=== PATIENT | female | born 1935 | race Caucasian/White ===

== ENCOUNTER 2017-07-12 10:12 | Emergency (ER) | payer MEDICARE, OTHER ==
[2017-07-12] MEDS ORDERED: Valium 5 MG PO ONE (10:53)
[2017-07-12 10:54] LABS: BASOPHIL % 0.6 % (0.0-0.4); Basophil (Absolute #) 0.04 (0-0.4); Eosinophil % 1.6 % (0.00-5.0); Eosinophil (Absolute #) 0.11 (0-0.5); Granulocyte Absolute (ANC) 4.57 (1.4-6.9); Granulocytes % 65.9 % (36.0-66.0); Hematocrit 44.5 % (35-47); Hemoglobin 14.8 gm/dl (12.0-16.0); Lymphocyte (Absolute #) 1.61 (1.0-4.6); Lymphocytes % 23.2 % (24.0-44.0); Mean Cell Volume 88.3 fl (78-100); Mean Corpuscular Hemoglobin 29.4 pg (26-32); Mean Corpuscular Hgb Concent. 33.3 g/dl (32-36); Mean Platelet Volume 10.7 fl (6-9.5); Monocytes % 8.7 % (0.0-12.0); Platelet Count 184 K/mm3 (150-450); Red Blood Count 5.04 M/mm3 (4.1-5.4); Red Cell Distribution Width 14.3 % (11.5-14.0); White Blood Count 6.9 K/mm3 (4.0-10.5)
--- NOTE | 2017-07-12 11:04 | ERPHSYRPT ---
- History of Present Illness Time Seen by Provider: 07/12/17 10:21 Source: patient, family Patient Subjective Stated Complaint: pt here for dizzness worse when moves, has been for 4 days now. pt denies any headache, n/v. daughter thinks she is more forgetfull lately but her cousin who is here does not think so Triage Nursing Assessment: pt alert, oreinted x3, resp easy, skin w/d/p. moves all ext well, no edema noted Physician History: CC: dizziness Hx: [address] James. She has intermittent feeling of dizziness for the past three days. She has felt the room spin but not now. When she looks at the clock it looks like it is moving. When she looks at a car on the shelf it looks like it is moving. No fall or injury. She takes coumadin. No headache, chest pain, abd pain. No N/V/D. No ear ache. No prior hx of this in the past. No tinnitus. No new hearing loss. Was worse 2 days ago when she laid back in the hair chair. Severity: moderate Allergies/Adverse Reactions: Sulfa (Sulfonamide Antibiotics) [Sulfa(Sulfonamide Antibiotics)] Allergy ( Intermediate, Verified 07/12/17 10:41) Fainting Home Medications: Potassium Chloride 20 Meq [Klor-Con 20 MEQ] 20 meq PO BID 03/05/12 [History] Carvedilol 3.125 mg [Coreg 3.125 MG] 6.25 mg PO BID 06/17/12 [History] Levothyroxine Sodium 150 Mcg [Synthroid 150 Mcg] 150 mcg PO DAILY 06/17/12 [ History] Warfarin Sodium 5 mg [Coumadin 5 MG] 3 mg PO DAILY 12/07/12 [History] Lisinopril 10 mg [Zestril 10 MG] 10 mg PO DAILY 11/19/14 [History] Pyridoxine HCl (Vitamin B6) [Vitamin B-6] 2 tab PO DAILY 11/19/14 [History] Hx Tetanus, Diphtheria Vaccination/Date Given: Yes (> 10 years) Hx Influenza Vaccination/Date Given: Yes Hx Pneumococcal Vaccination/Date Given: Yes - Review of Systems Constitutional: No Fever, No Chills Eyes: No Vision Changes Ears, Nose, & Throat: No Ear Pain, No Ear Discharge, No Hearing Changes, No Tinnitus, No Nose Congestion Respiratory: No Cough, No Dyspnea Cardiac: No Chest Pain, No Palpitations, No Syncope Abdominal/Gastrointestinal: No Abdominal Pain, No Nausea, No Vomiting, No Diarrhea Genitourinary Symptoms: No Dysuria Skin: No Rash Neurological: Dizziness, No Focal Weakness, No Headache, No Parasthesia All Other Systems: Reviewed and Negative - Past Medical History Pertinent Past Medical History: Yes Neurological History: No Pertinent History, TIA ENT History: Cataracts Cardiac History: Arrhythmia, Hypertension Respiratory History: No Pertinent History, Pneumonia Endocrine Medical History: Hypothyroidism Musculoskeletal History: No Pertinent History GI Medical History: Diverticulitis, Hernia History: No Pertinent History Psycho-Social History: No Pertinent History Female Reproductive Disorders: No Pertinent History Other Medical History: a-fib, non hodgkins lymphoma-Feb 2012 - Past Surgical History Past Surgical History: Yes Neuro Surgical History: No Pertinent History Cardiac: No Pertinent History Respiratory: No Pertinent History Gastrointestinal: No Pertinent History Genitourinary: No Pertinent History Musculoskeletal: No Pertinent History Female Surgical History: Hysterectomy Other Surgical History: cvl port placed and removed, excision lymph node in groin, R shoulder mass removed-benign, 2009 small mole removed from back of neck +carcinoma, cataract surgery - Social History Smoking Status: Never smoker Exposure to second hand smoke: Yes Drug Use: none Patient Lives Alone: No - Female History Hx Last Menstrual Period: post Hx Now: No - Nursing Vital Signs Nursing Vital Signs: Initial Vital Signs Temperature 97.2 F 07/12/17 10:31 Pulse Rate 57 L 07/12/17 10:31 Respiratory Rate 18 07/12/17 10:31 Blood Pressure 177/96 07/12/17 10:31 O2 Sat by Pulse Oximetry 97 07/12/17 10:31 Pain Scale Pain Intensity 0 - Physical Exam General Appearance: alert Eye Exam: PERRL/EOMI, other (horizontal nystagmus) Ears, Nose, Throat Exam: normal ENT inspection, moist mucous membranes Neck Exam: normal inspection, non-tender, supple Respiratory Exam: normal breath sounds, lungs clear Cardiovascular Exam: regular rate/rhythm Gastrointestinal/Abdomen Exam: soft, No tenderness, No distention, No guarding Extremity Exam: normal inspection, normal range of motion, No calf tenderness Neurologic Exam: alert, oriented x 3, cooperative, 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 No) Ordered Tests: Active Orders 24 hr Category Date Time Status EKG-ER Only STAT Care 07/12/17 10:53 Active IV Insertion STAT Care 07/12/17 10:53 Active CHEST 2 VIEWS (PA AND LAT) Stat Exams 07/12/17 11:05 Completed HEAD WITHOUT CONTRAST [CT] Stat Exams 07/12/17 10:53 Completed CBC W DIFF Stat Lab 07/12/17 10:40 Completed CMP Stat Lab 07/12/17 10:40 Completed CULTURE,URINE Stat Lab 07/12/17 12:16 Ordered PROTIME WITH INR Stat Lab 07/12/17 10:53 Completed UA W/ MICROSCOPIC Stat Lab 07/12/17 10:40 Completed Medication Summary Discontinued Medications Generic Name Dose Route Start Last Admin Trade Name Nick PRN Reason Stop Dose Admin Diazepam 2.5 mg 07/12/17 10:53 07/12/17 11:18 Valium 5 Mg PO 07/12/17 10:54 2.5 mg STAT ONE Administration Diazepam Confirm 07/12/17 11:16 Valium 5 Mg Administered 07/12/17 11:17 Dose 5 mg .ROUTE .Zipdial-MED ONE Lab/Rad Data: Laboratory Result Diagrams 07/12/17 10:40 07/12/17 10:40 Laboratory Results 07/12/17 07/12/17 07/12/17 Range/Units 10:53 10:40 10:40 WBC 6.9 (4.0-10.5) K/mm3 RBC 5.04 (4.1-5.4) M/mm3 Hgb 14.8 (12.0-16.0) gm/dl Hct 44.5 (35-47) % MCV 88.3 (78-100) fl MCH 29.4 (26-32) pg MCHC 33.3 (32-36) g/dl RDW 14.3 H (11.5-14.0) % Plt Count 184 (150-450) K/mm3 MPV 10.7 H (6-9.5) fl Gran % 65.9 (36.0-66.0) % Lymphocytes % 23.2 L (24.0-44.0) % Monocytes % 8.7 (0.0-12.0) % Eosinophils % 1.6 (0.00-5.0) % Basophils % 0.6 (0.0-0.4) % Basophils # 0.04 (0-0.4) INR 2.29 (0.8-3.0) Sodium 138 (137-145) mmol/L Potassium 4.6 (3.5-5.1) mmol/L Chloride 102 (98-107) mEq/L Carbon Dioxide 28 (22-30) mmol/L Anion Gap 13.1 (5-15) MEQ/L BUN 16 (7-17) mg/dl Creatinine 0.61 (0.52-1.04) mg/dl Estimated GFR > 60 ML/MIN Glucose 95 (74-106) mg/dL Calcium 9.8 (8.4-10.2) mg/dL Total Bilirubin 1.40 H (0.2-1.3) mg/d? AST 38 H (14-36) U/L ALT 17 (0-35) U/L Alkaline Phosphatase 86 (38-126) U/L Serum Total Protein 6.9 (6.3-8.2) mg/dl Albumin 4.0 (3.5-5.0) g/dl Ur Collection Type Urine Color (YELLOW) Urine Appearance (CLEAR) Urine pH (5-6) Ur Specific [place] (1.005-1.025) Urine Protein (Negative) Urine Ketones (NEGATIVE) Urine Blood (0-5) Saurabh/ul Urine Nitrite (NEGATIVE) Urine Bilirubin (NEGATIVE) Urine Urobilinogen (0-1) mg/dL Ur Leukocyte Esterase (NEGATIVE) Urine Microscopic RBC (0-2) /HPF Urine Microscopic WBC (0-5) /HPF Ur Epithelial Cells (FEW) /HPF Urine Bacteria (NEGATIVE) /HPF Urine Culture Reflexed (NO) Urine Glucose (NEGATIVE) mg/dL Specimen Received 07/12/17 Range/Units 10:40 WBC (4.0-10.5) K/mm3 RBC (4.1-5.4) M/mm3 Hgb (12.0-16.0) gm/dl Hct (35-47) % MCV (78-100) fl MCH (26-32) pg MCHC (32-36) g/dl RDW (11.5-14.0) % Plt Count (150-450) K/mm3 MPV (6-9.5) fl Gran % (36.0-66.0) % Lymphocytes % (24.0-44.0) % Monocytes % (0.0-12.0) % Eosinophils % (0.00-5.0) % Basophils % (0.0-0.4) % Basophils # (0-0.4) INR (0.8-3.0) Sodium (137-145) mmol/L Potassium (3.5-5.1) mmol/L Chloride (98-107) mEq/L Carbon Dioxide (22-30) mmol/L Anion Gap (5-15) MEQ/L BUN (7-17) mg/dl Creatinine (0.52-1.04) mg/dl Estimated GFR ML/MIN Glucose (74-106) mg/dL Calcium (8.4-10.2) mg/dL Total Bilirubin (0.2-1.3) mg/d? AST (14-36) U/L ALT (0-35) U/L Alkaline Phosphatase (38-126) U/L Serum Total Protein (6.3-8.2) mg/dl Albumin (3.5-5.0) g/dl Ur Collection Type CCMS Urine Color YELLOW (YELLOW) Urine Appearance CLEAR (CLEAR) Urine pH 5.0 (5-6) Ur Specific [place] 1.020 (1.005-1.025) Urine Protein NEGATIVE (Negative) Urine Ketones NEGATIVE (NEGATIVE) Urine Blood NEGATIVE (0-5) Saurabh/ul Urine Nitrite NEGATIVE (NEGATIVE) Urine Bilirubin NEGATIVE (NEGATIVE) Urine Urobilinogen NORMAL (0-1) mg/dL Ur Leukocyte Esterase 1+ (NEGATIVE) Urine Microscopic RBC 0-2 (0-2) /HPF Urine Microscopic WBC 5-10 (0-5) /HPF Ur Epithelial Cells MANY (FEW) /HPF Urine Bacteria RARE (NEGATIVE) /HPF Urine Culture Reflexed NO (NO) Urine Glucose NEGATIVE (NEGATIVE) mg/dL Specimen Received T@1100 - Progress Progress Note: 07/12/17 12:19 Ambulated well. No sign of stroke. Some recent dysuria. Urine culture sent. Appt with Dr James. Aot and family understand plan and agree. - Departure Time of Disposition: 12:17 Departure Disposition: Home Clinical Impression: Dizziness, UTI (urinary tract infection), Anticoagulated on warfarin Condition: Stable Critical Care Time: No Referrals: HEDY JAMES [Primary Care Provider] - Instructions: Vertigo (a Type of Dizziness) (DC), Urinary Tract Infection, Adult (DC), Preventing Falls in the Older Adult Additional Instructions: See Dr James Saturday at 11:30AM. Take care not to fall. Rx valium. Return for problems or concerns. Rx keflex. Prescriptions: Cephalexin Mh 500 mg [Keflex 500 mg] 1 cap PO QID #28 capsule Diazepam [Valium] 2 mg PO BIDPRN PRN #10 tablet PRN Reason: Dizziness
[2017-07-12 11:06] LABS: Appearance CLEAR (CLEAR); Leukocyte Esterase 1+ (NEGATIVE)
[2017-07-12 11:07] LABS: Bilirubin NEGATIVE (NEGATIVE); Blood NEGATIVE Ery/ul (0-5); Glucose NEGATIVE (NEGATIVE); Ketones NEGATIVE (NEGATIVE); Nitrite NEGATIVE (NEGATIVE); Protein,Urine Dip NEGATIVE (Negative); Urobilinogen NORMAL mg/dL (0-1)
[2017-07-12 11:08] LABS: Bacteria RARE /HPF (NEGATIVE); Epithelial Cells MANY /HPF (FEW)
[2017-07-12 11:13] LABS: INR 2.29 (0.8-3.0)
[2017-07-12] MEDS ORDERED: Valium 5 MG ONE (11:16)
[2017-07-12 11:19] LABS: ALKALINE PHOSPHATASE 86 U/L (38-126); ANION GAP 13.1 MEQ/L (5-15); BLOOD UREA NITROGEN 16 mg/dl (7-17); CHLORIDE 102 mEq/L (98-107); Calcium 9.8 mg/dL (8.4-10.2); Carbon Dioxide 28 mmol/L (22-30); Creatinine 1 0.61 mg/dl (0.52-1.04); Glucose 95 mg/dL (74-106); Potassium 4.6 mmol/L (3.5-5.1); SGOT/AST 38 U/L (14-36); SGPT/ALT 17 U/L (0-35); SODIUM 138 mmol/L (137-145); Total Protein 6.9 mg/dl (6.3-8.2)
--- NOTE | 2017-07-12 11:42 | XRAY ---
Indication: Dizziness. Multiple contiguous axial images obtained through the head without contrast. Comparison: December 07, 2012. Again age-appropriate global atrophy and minimal periventricular degenerative micro-ischemia. No acute intracranial hemorrhage, abnormal extra-axial fluid collection, or mass effect. Fourth ventricle is midline without hydrocephalus. Bony calvarium intact again with mild hyperostosis frontalis interna. Visualized paranasal sinuses and mastoid air cells are clear. Impression: Stable nonacute senile brain. CT DI 70.31
--- NOTE | 2017-07-12 11:44 | XRAY ---
Indication: Hypoxia and dizziness 3 days. Comparison: March 06, 2012. PA/lateral chest hyperinflated and clear. Heart is not enlarged. Descending aorta remains tortuous. Bony thorax intact again with mild osteopenia and degenerative changes. Impression: Nonacute hyperinflated chest with chronic features.
[2017-07-12 11:49] VITALS: PULSE 68
[2017-07-12 12:46] VITALS: BP 134/84; O2SAT 98
== END 2017-07-12 12:46 | disposition home or self-care (01) ==
LOC: ED 10:12
DX: R42 Dizziness and giddiness (principal); N39.0 Urinary tract infection, site not specified; Z79.01 Long term (current) use of anticoagulants; Z79.899 Other long term (current) drug therapy
CPT/HCPCS: 36000; 36415; 70450; 71046; 80053; 81000; 85025; 85610; 87086; 93005; 99284; A9270-GY